=== PATIENT | female | born 1955 | race Caucasian/White ===

== ENCOUNTER → 2021-10-24 13:50 | Outpatient (CLI) | payer MEDICARE, SELFPAY ==
--- NOTE | 2021-10-24 14:15 | CT_ITS ---
STUDY: LOW DOSE CT LUNG CANCER SCREENING REASON FOR EXAM: Female, 66 years old. TOBACCO ABUSE. Patient smokes 1 pack per day for 48 years. RADIATION DOSAGE (If Supplied By Facility): CTDIvol = ( 2.01 ) mGy, DLP = ( 67.71 ) mGycm TECHNIQUE: No contrast was administered. Low dose technique was utilized (average mAS-38 and kVp 120). 1.25 mm axial source images with a slice interval of 1.25-mm were reconstructed in lung windows. 2.5 mm axial source images with a slice interval of 2.5-mm were reconstructed in lung windows. 5.0 mm axial source images with a slice interval of 5.0-mm were reconstructed in soft tissue windows. Nodule measured using lung windows on PACS and/or independent workstation with automated measurement of minimum and maximum diameter. Nodule measurement reported as average diameter rounded to the nearest whole number. Growth is defined as an increase ins size of greater than 1.5 mm. COMPARISON: None. NODULES: No suspicious nodules are seen. Emphysema: Hyperinflation. Emphysematous changes. Scarring at both lung apices. There is a 1.2 cm bulla in the posterior medial segment of the left lower lobe. Endobronchial lesion: None Aorta: Atherosclerotic plaque formation of the aortic arch. Coronary arteries: Coronary artery calcification. Heart: Unremarkable Pulmonary artery: Unremarkable Mediastinal nodes: Small mediastinal lymph nodes. Calcified bilateral hilar lymph nodes. Other chest and abdominal findings: CT/Low Dose CT Lung Screening IMPRESSION: Lung-RADS category 2 - Continue annual screening with LDCT in 12 months. IMPORTANT NOTES FOR USE: ACR Lung-RADS Version 1.1 Assessment Categories Release Date: 2018 Category: Coded 0-4 bases on nodule(s) with highest degree of suspicion. Negative screen is defined as categories 1 and 2; a positive screen is defined as categories 3 and 4. Category 3 and 4A nodules that are unchanged on interval CT should be coded as category 2, and individuals returned to screening in 12 months. Category 4X: Category 3 or 4 nodules with additional imaging findings that increase the suspicion of lung cancer, such as spiculation, GGN that doubles in size in 1 year, enlarged lymph notes, etc. Category Modifiers: S (significant finding unrelated to lung cancer) Electronically Signed: Yair Forman MD at 14:36 EST , Service support ,
== END ==
PROVIDERS: PCP Internal Medicine; Referring Provider Internal Medicine; Visit Provider Internal Medicine
DX: Z12.2 Encounter for screening for malignant neoplasm of respiratory organs (principal); Z87.891 Personal history of nicotine dependence
CPT/HCPCS: 71271

== ENCOUNTER 2021-11-21 10:26 | Outpatient (CLI) | payer MEDICARE, SELFPAY ==
--- NOTE | 2021-11-21 10:32 | BI_ITS ---
MAMMOGRAPHY - BILATERAL SCREENING REASON FOR EXAM: Female, 66 years old. Routine annual screening examination. PERTINENT HISTORY: Non-contributory. TECHNIQUE: Digital bilateral breast tigist (3D mammographic acquisition) in the CC and MLO projections. 2-D mediolateral oblique (MLO) and craniocaudad (CC) views of both breasts were obtained. CAD: Full Field Digital Mammography with Computer Added Detection was performed. COMPARISON: Comparison is made with prior outside examination dated 10/03/2014. FINDINGS: Breast Composition: The breasts are heterogeneously dense, which may obscure small masses. There are no dominant masses or suspicious calcifications. No other significant abnormalities are identified. There has been no significant change since the prior study. BI/SCRN MAMM (CAD)W/TIGIST BILAT IMPRESSION: Stable bilateral screening mammogram. Yearly follow-up mammogram recommended. (A) ASSESSMENT CATEGORY: BIRADS Category 1: Negative. A letter regarding these results will be sent to the patient by the facility within 30 days. Approximately 10% of breast cancers are not detected by mammography. A normal mammogram should not delay biopsy of a clinically suspicious abnormality. [id number] Electronically Signed: Yair Forman MD at 12:25 EST , Service support ,
--- NOTE | 2021-11-21 10:34 | BD_ITS ---
STUDY: DUAL ENERGY X-RAY ABSORPTIOMETRY / DXA REASON FOR EXAM: Female, 66 years old. [id number]. Patient is postmenopausal. TECHNIQUE: Bone Mineral Density (BMD) measurements of lumbar spine and bilateral hips were obtained. COMPARISON: None. FINDINGS: Lumbar Spine (L1-L4): g/cm2 (0.754) / T-score (-2.7) / Z-score (-0.7) Findings are suggestive of osteoporosis with a high fracture risk. Left Femur Total: g/cm2 (0.670) / T-score (-2.2) / Z-score (-0.8) Left Femoral Neck: g/cm2 (0.551) / T-score (-2.7) / Z-score (-1.0) Right Femur Total: g/cm2 (0.717) / T-score (-1.8) / Z-score (-0.4) Right Femoral Neck: g/cm2 (0.598) / T-score (-2.3) / Z-score (-0.6) BD/Dexa Bone Density Study IMPRESSION: The patient is considered osteoporotic as outlined below according to World Te Organization (WHO) criteria with a high fracture risk. Reference Information: The T-score is the number of standard deviations above or below the standard which is normal for young adults at their peak bone mineral density. The World Health Organization (WHO) interprets the T-scores as follows: Above -1 Normal bone density Between -1 and -2.5 Osteopenia Equal to / or below -2.5 Osteoporosis As a practical clinical guideline, osteopenia may be graded as follows: Mild -1 through -1.5 Moderate -1.6 through -2.0 Severe -2.1 through -2.4 The Z-score is the number of standard deviations above or below age-matched controls. A Z-score of less than -1.5 would be considered abnormal. References: 1. NIH Osteoporosis and Related Bone Diseases www osteo.org 2. International Society for Clinical Densitometry www iscd.org 3. National Osteoporosis Foundation www nof.org Electronically Signed: Yair Forman MD at 14:59 EST , Service support ,
== END 2021-11-21 23:59 | disposition short-term general hospital (02) ==
LOC: OPBD 10:27
PROVIDERS: PCP Internal Medicine; Referring Provider Internal Medicine; Visit Provider Internal Medicine
DX: Z78.0 Asymptomatic menopausal state (principal); Z12.31 Encounter for screening mammogram for malignant neoplasm of breast
CPT/HCPCS: 77063; 77067; 77080

== ENCOUNTER → 2023-02-11 | Outpatient (REF) | payer SELFPAY | LOC: CVS 08:56 | PROVIDERS: PCP Internal Medicine | DX: Z00.00 Encounter for general adult medical examination without abnormal findings (principal) ==

== ENCOUNTER → 2023-02-20 | Outpatient (CLI) | payer MEDICARE, SELFPAY ==
--- NOTE | 2023-02-20 13:07 | CT_ITS ---
STUDY: LOW DOSE CT LUNG CANCER SCREENING REASON FOR EXAM: Female, 67 years old. One pack per day smoker x50 years RADIATION DOSAGE (If Supplied By Facility): CTDIvol = ( 1.59 ) mGy, DLP = ( 54.20 ) mGycm TECHNIQUE: No contrast was administered. Low dose technique was utilized (average mAS-38 and kVp 120). 1.25 mm axial source images with a slice interval of 1.25-mm were reconstructed in lung windows. 2.5 mm axial source images with a slice interval of 2.5-mm were reconstructed in lung windows. 5.0 mm axial source images with a slice interval of 5.0-mm were reconstructed in soft tissue windows. COMPARISON: 10/24/2021 Findings: Lung windows show the lungs to be hyperexpanded with chronic interstitial changes again noted. No organized infiltrate, effusion, or suspicious noncalcified mass or nodule. Limited soft tissue windows show normal-appearing thyroid gland. No suspicious axillary adenopathy. No thoracic aortic aneurysm or dissection. There are calcified coronary vessels, no pericardial effusions. Limited cuts through the upper abdomen do not show suspicious abnormality. Bony structures show degenerative change CT/Low Dose CT Lung Screening IMPRESSION: Lung-RADS category 2 - Continue annual screening with LDCT in 12 months. IMPORTANT NOTES FOR USE: ACR Lung-RADS Version 1.1 Assessment Categories Release Date: 2018 Category: Coded 0-4 bases on nodule(s) with highest degree of suspicion. Negative screen is defined as categories 1 and 2; a positive screen is defined as categories 3 and 4. Category 3 and 4A nodules that are unchanged on interval CT should be coded as category 2, and individuals returned to screening in 12 months. Category 4X: Category 3 or 4 nodules with additional imaging findings that increase the suspicion of lung cancer, such as spiculation, GGN that doubles in size in 1 year, enlarged lymph notes, etc. Category Modifiers: S (significant finding unrelated to lung cancer) Electronically Signed: Aman Wesley MD at 14:01 EDT ,
== END | disposition home or self-care (01) ==
LOC: CT 13:06
PROVIDERS: PCP Internal Medicine; Referring Provider Internal Medicine; Visit Provider Internal Medicine
DX: Z12.2 Encounter for screening for malignant neoplasm of respiratory organs (principal); F17.210 Nicotine dependence, cigarettes, uncomplicated
CPT/HCPCS: 71271

== ENCOUNTER → 2025-08-25 | Outpatient (CLI) | payer MEDICARE, SELFPAY ==
--- OUTSIDE RECORDS SUMMARY | 2025-08-25 12:53 | XMS RPT_ITS | CCD ---
Author Organization [facility] ion Partnership [facility] Care Team Providers Care Validation Software Facilitator Name Role Phone Parth CANALES, Aman Bill Unavailable [phone] KYLIE TANNER Unavailable Unavailable KYLIE TANNER Unavailable Unavailable Emmy Haddad DO Unavailable [phone] Iris UGALDEN, Marianna Unavailable Unavailable Yesenia Dotson MA Unavailable Unavailable Janine Esteban MA Unavailable Unavailable Emmy Haddad DO Attending Unavailable Emmy Haddad DO Consulting Unavailable Gareth GARCIA, Gisela Unavailable Unavailable Dr. Emmy Haddad Primary Care Provider Dr. Julian Arellano Attending Provider Aman Alba MD Unavailable [phone] NONE, NONE Unavailable Unavailable Emmy Haddad DO Unavailable Emmy Haddad Referring Unavailable Emmy Haddad Attending Unavailable Emmy Haddad Primary Care Unavailable Allergies Allergy Classification Reported Allergen(s) Allergy Type Date of Onset Reaction(s) Facility (2 sources) iodine Drug Allergy 8 [facility] Work Phone: (2 sources) povidone-iodine Drug Allergy 8 [facility] Work Phone: (6 sources) Alendronate; Translations: [Fosamax *ENDOCRINE AND METABOLIC AGENTS - MISC.*] Drug Allergy [facility] Work Phone: (6 sources) Iodine; Translations: [Iodine *ANTISEPTICS & DISINFECTANTS*] Drug Allergy [facility] Work Phone: (6 sources) terbinafine; Translations: [Terbinafine *DERMATOLOGICALS *] Drug Allergy Hives [facility]; [facility] Work Phone: Medications Completed/Discontinued Medications Medication Drug Class(es) Dates Sig (Normalized) Sig (Original) acetaminophen 500 mg oral capsule (6 sources) Acetaminophen 50 0 MG Oral Capsule as needed (500 MG) Active Comments: Medication taken as needed. Comment on above: Medication taken as needed. ibuprofen 800 mg oral tablet (6 sources) Nonsteroidal Anti-inflammatory Drug IBU 800 MG Oral Tablet as needed (800 MG) Active Comments: Medication taken as needed. Comment on above: Medication taken as needed. MULTIPLE VITAMINS-MINERALS (1 source) Start: 09-04-2018 HAIR SKIN NAILS CAPS once a day MULTIPLE VITAMINS-MINERALS [id number] Justine CASTILLO Multivital Oral Tablet (6 sources) take 1 tablet by mouth once daily Multivital Oral Tablet daily Active Problems Active Problems Problem Classification Problem Date Documented Date Episodic/Chronic Diabetes mellitus without complication (8 sources) Hyperglycemia; Translations: [Hyperglycemia] 01-24-2023 Episodic Comment on above: new dx 01/30 Disorders of lipid metabolism (13 sources) Hyperlipidemia; Translations: [Hyperlipidemia, unspecified hyperlipidemia type] 01-23-2023 Chronic Immunizations and screening for infectious disease (20 sources) Patient encounter status; Translations: [Encounter for hepatitis C virus screening test for high risk patient] 10-17-2021 Episodic Osteoarthritis (18 sources) Osteoarthritis of joint of bilateral hands; Translations: [Osteoarthritis of both hands, unspecified osteoarthritis type] Onset: 08-17-2025 10-17-2021 Chronic Comment on above: stable Osteoporosis (12 sources) Disuse osteoporosis; 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, 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-23-2023 Chronic Comment on above: h/o hyperparathyiod and s/p resectioncant do fosamax and boniva and wont do prolia bc of family h/.o exercise Other circulatory disease (1 source) Other specified symptoms and signs involving the circulatory and respiratory systems; Translations: [Other specified symptoms and signs involving the circulatory and respiratory systems] Onset: 08-16-2025 Episodic Other screening for suspected conditions (not mental disorders or infectious disease) (20 sources) Encounter for screening for diabetes mellitus; Translations: [Patient encounter status] Onset: 10-28-2018 10-17-2021 Episodic Comment on above: last scope 1983-- wa john cologard now last scope 1983-- co logard 2021 pt declined mamm 202 3 Residual codes; unclassified (19 sources) Body mass index 20-24 - normal; Translations: [BMI 20.0-20.9, adult] 10-17-2021 Episodic Residual codes; unclassified (18 sources) Postmenopausal state; Translations: [Postmenopausal (Renamed from Postmenopausal status)] 10-18-2021 Episodic Residual codes; unclassified (19 sources) Tobacco user; Translations: [Tobacco abuse] 10-17-2021 Episodic Comment on above: one + pack a day for over 48yrs one + pack a day for over 49yrs Residual codes; unclassified (1 source) Asymptomatic menopausal state; Translations: [Asymptomatic menopausal state] Onset: 08-16-2025 Episodic Spondylosis; intervertebral disc disorders; other back problems (12 sources) Low back pain; Translations: [Low back pain] 10-17-2021 Episodic Substance-related disorders (1 source) Nicotine dependence, cigarettes, uncomplicated; Translations: [Nicotine dependence, cigarettes, uncomplicated] Onset: 08-16-2025 Chronic Past or Other Problems Problem Classification Problem Date Documented Date Episodic/Chronic Open wounds of extremities (2 sources) Laceration of elbow; Translations: [Laceration without foreign body of right elbow, initial encounter] Onset: 09-07-2018 09-07-2018 Episodic Other connective tissue disease (4 sources) Olecranon bursitis; Translations: [Olecranon bursitis, right elbow] Onset: 09-04-2018 09-07-2018 Episodic Unclassified (1 source) Problem Unclassified (6 sources) Abortions/Miscarriage s; Translations: [Abortions/Miscarriag es] 10-17-2021 Comment on above: 3. Unclassified (6 sources) Deliveries (Parity); Translations: [Deliveries (Parity)] 10-17-2021 Comment on above: 7. Unclassified (6 sources) Pregnancies (); Translations: [Pregnancies ()] 10-17-2021 Comment on above: 10. Unclassified (4 sources) Encounter for screening for lipid disorder Unclassified (4 sources) Postmenopausal (Renamed from Postmenopausal status) Unclassified (20 sources) Unclassified (2 sources) BMI 20.0-20.9, adult Unclassified (2 sources) Colon cancer screening (Renamed from Encounter for screening for malignant neoplasm of colon) Unclassified (2 sources) Encounter for screening mammogram for breast cancer (Renamed from Encounter for screening mammogram for malignant neoplasm of breast) Unclassified (2 sources) Tobacco abuse Unclassified (2 sources) Encounter for hepatitis C virus screening test for high risk patient Unclassified (2 sources) Encounter for annual general medical examination with abnormal findings in adult Unclassified (2 sources) Osteoarthritis of both hands, unspecified osteoarthritis type Results Test Name Value Interpretation Reference Range Facility Relevant diagnostic tests/la boratory data Narrativeon 08-17-2025 Fall risk assessment no [facility] Work Phone: MEDS REVIEW Done [facility] Work Phone: MEDS REVIEWD Medications reviewed without changes [facility] Work Phone: CBC W/AUTO DIFF WBC ([id number])O rdered By: Liquor Blender on 01-23-2023 Basophils (Bld) [#/Vol] 0.1 10*3/uL Normal 0.0-0.2 [facility]; [facility] Work Phone: Comment on above: PATIENT WAS FASTINGP ERFORMED BY: Aarki70 AdynxxUNC Health Lenoir [id number] Basophils/100 WBC (Bld) 1 % Normal [facility]; [facility] Work Phone: Comment on above: PATIENT WAS FASTINGP ERFORMED BY: Signaturit70 [facility] ShowKindred Hospital [facility] [id number] Eosinophils (Bld) [#/Vol] 0.2 10*3/uL Normal 0.0-0.4 [facility]; [facility] Work Phone: Comment on above: PATIENT WAS FASTINGP ERFORMED BY: Signaturit70 [facility] LabsUNC Health Lenoir [id number] Eosinophils/100 WBC (Bld) 3 % Normal [facility]; [facility] Work Phone: Comment on above: PATIENT WAS FASTINGP ERFORMED BY: TRINIDAD Harding[address] [facility]in [place] [id number] Erythrocyte distribution width (RBC) [Ratio] 12.0 % Normal 11.7-15.4 [facility]; [facility] Work Phone: Comment on above: PATIENT WAS FASTINGP ERFORMED BY: TRINIDAD Trianacohaim HardingBrgdty7555 Shepherd RoadFormerly [facility], [facility] [id number] Hematocrit (Bld) [Volume fraction] 42.1 % Normal 34.0-46.6 [facility]; [facility] Work Phone: Comment on above: PATIENT WAS FASTINGP ERFORMED BY: TRINIDAD Harding6370 Shepherd RoadHugh Chatham Memorial Hospitalin [place] [id number] Hemoglobin (Bld) [Mass/Vol] 14.3 g/dL Normal 11.1-15.9 [facility]; [facility] Work Phone: Comment on above: PATIENT WAS FASTINGP ERFORMED BY: TRINIDAD Jonas Zyrdtt8894 Shepherd RoadHugh Chatham Memorial Hospitalin [place] [id number] Immature granulocytes (Bld) [#/Vol] 0.0 10*3/uL Normal 0.0-0.1 [facility]; [facility] Work Phone: Comment on above: PATIENT WAS FASTINGP ERFORMED BY: TRINIDAD Jonas Mhjwde90[address] [facility]in [place] [id number] Immature granulocytes/100 WBC (Bld) 0 % Normal [facility]; [facility] Work Phone: Comment on above: PATIENT WAS FASTINGP ERFORMED BY: TRINIDAD Labco Aucjia7880 Shepherd Roadblin [place] [id number] Lymphocytes (Bld) [#/Vol] 1.3 10*3/uL Normal 0.7-3.1 [facility]; [facility] Work Phone: Comment on above: PATIENT WAS FASTINGP ERFORMED BY: [facility] Tgjlzd8964 Shepherd RoadHugh Chatham Memorial Hospitalin [place] [id number] Lymphocytes/100 WBC (Bld) 18 % Normal [facility]; [facility] Work Phone: Comment on above: PATIENT WAS FASTINGP ERFORMED BY: TRINIDAD Kamilahsabina Tlmecw[address] [facility] [address] [id number] MCH (RBC) [Entitic mass] 32.6 pg Normal 26.6-33.0 [facility]; [facility] Work Phone: Comment on above: PATIENT WAS FASTINGP ERFORMED BY: TRINIDAD LabVA [facility] Center[address] [facility] [id number] MCHC (RBC) [Mass/Vol] 34.0 g/dL Normal 31.5-35.7 [facility]; [facility] Work Phone: Comment on above: PATIENT WAS FASTINGP ERFORMED BY: TRINIDAD Tovarlin[address] [facility] [address] [id number] MCV (RBC) [Entitic vol] 96 fL Normal 79-97 [facility]; [facility] Work Phone: Comment on above: PATIENT WAS FASTINGP ERFORMED BY: TRINIDAD [facility]do[facility] Zynsoo[address] [facility] [address] [id number] Monocytes (Bld) [#/Vol] 0.6 10*3/uL Normal 0.1-0.9 [facility]; [facility] Work Phone: Comment on above: PATIENT WAS FASTINGP ERFORMED BY: TRINIDAD KamilahVA Medical Center[address] [facility] [place] [id number] Monocytes/100 WBC (Bld) 9 % Normal [facility]; [facility] Work Phone: Comment on above: PATIENT WAS FASTINGP ERFORMED BY: TRINIDAD Labdo[facility] Prbqzc[address] [facility] [id number] Neutrophils (Bld) [#/Vol] 4.9 10*3/uL Normal 1.4-7.0 [facility]; [facility] Work Phone: Comment on above: PATIENT WAS FASTINGP ERFORMED BY: TRINIDAD LabVA Medical Center[address] [facility] [id number] Neutrophils/100 WBC (Bld) 69 % Normal [facility]; [facility] Work Phone: Comment on above: PATIENT WAS FASTINGP ERFORMED BY: TRINIDAD Jonas Wkkefe[address] [facility] [address] [id number] Platelets (Bld) [#/Vol] 287 10*3/uL Normal 150-450 [facility]; [facility] Work Phone: Comment on above: PATIENT WAS FASTINGP ERFORMED BY: [facility] [facility] [id number] RBC (Bld) [#/Vol] 4.38 10*6/uL Normal 3.77-5.28 [facility]; [facility] Work Phone: Comment on above: PATIENT WAS FASTINGP ERFORMED BY: [facility] [facility] [id number] WBC (Bld) [#/Vol] 7.1 10*3/uL Normal 3.4-10.8 [facility]; [facility] Work Phone: Comment on above: PATIENT WAS FASTINGP ERFORMED BY: Kamilahdoctors [facility] Gekfhl[address] [facility] [address] [facility] [id number] HEPATITIS C ANTIBODY ([id number]) Ordered By: Liquor Blender on 01-23-2023 HCV Ab Signal/Cutoff IA [Rel units/Vol] Non-Reactive Normal [facility]; [facility] Work Phone: Comment on above: HCV antibody alone d oes not differentiate between previouslyresolved infection and active infection. Equivocal and ReactiveHCV antibody results should be followed up with an HCV RNA testto support the diagnosis of active HCV infection. PATIENT WAS FASTINGP ERFORMED BY: [facility] [facility] [id number] LIPID PANEL ([id number])Ordered B y: Liquor Blender on 01-23-2023 Cholesterol [Mass/Vol] 279 mg/dL Abnormal 100-199 [facility]; [facility] Work Phone: Comment on above: PATIENT WAS FASTINGP ERFORMED BY: TRINIDAD [facility] Xpgntr4527 Shepherd RoadDublin [place] [id number] Cholesterol in HDL [Mass/Vol] 93 mg/dL Normal [facility]; [facility] Work Phone: Comment on above: PATIENT WAS FASTINGP ERFORMED BY: TRINIDAD Labcohaim Hycqhu3043 [address] RoadDublin [place] [id number] Triglyceride [Mass/Vol] 83 mg/dL Normal 0-149 [facility]; [facility] Work Phone: Comment on above: PATIENT WAS FASTINGP ERFORMED BY: TRINIDAD [facility] Ormoir78[address] RoadDublin [place] [id number] LIPID PANEL ([id number]) 13 mg/dL Normal 5-40 [facility]; [facility] Work Phone: Comment on above: PATIENT WAS FASTINGP ERFORMED BY: TRINIDAD Labcohaim TovarNfsftp8960 Shepherd RoadDublin [place] [id number] LIPID PANEL (75489) 173 mg/dL Abnormal 0-99 [facility]; [facility] Work Phone: Comment on above: PATIENT WAS FASTINGP ERFORMED BY: TRINIDAD [facility] Wqyukw0949 [address] RoadDublin [place] [id number] LIPID PANEL (54804) 1.9 {ratio} Normal 0.0-3.2 [facility]; [facility] Work Phone: Comment on above: LDL/HDL Ratio Men Wo men 1/2 Avg.Risk 1.0 1.5 Avg.Risk 3.6 3.2 2X Avg.Risk 6.2 5.0 3X Avg.Risk 8.0 6.1 PATIENT WAS FASTINGP ERFORMED BY: TRINIDAD [facility] Auztir3382 [address] RoadDublin [place] [id number] METABOLIC PANEL, COMPREHENSI VE (87401)Ordered By: Liquor Blender on 01-23-2023 Albumin [Mass/Vol] 4.6 g/dL Normal 3.8-4.8 [facility]; [facility] Work Phone: Comment on above: PATIENT WAS FASTINGP ERFORMED BY: TRINIDAD [facility] Qrsuud1043 [address] RoadDublin [place] [id number] Albumin/Globulin [Mass ratio] 1.8 {ratio} Normal 1.2-2.2 [facility]; [facility] Work Phone: Comment on above: PATIENT WAS FASTINGP ERFORMED BY: TRINIDAD [facility] Jxighp2385 [address] RoadDublin [place] [id number] ALP [Catalytic activity/Vol] 61 U/L Normal 44-121 [facility]; [facility] Work Phone: Comment on above: PATIENT WAS FASTINGP ERFORMED BY: CB [facility] Omtaif9946 [address] RoadDublin [place] [id number] ALT [Catalytic activity/Vol] 24 U/L Normal 0-32 [facility]; [facility] Work Phone: Comment on above: PATIENT WAS FASTINGP ERFORMED BY: TRINIDAD [facility] Tsienw5234 [address] RoadDublin [place] [id number] AST [Catalytic activity/Vol] 27 U/L Normal 0-40 [facility]; [facility] Work Phone: Comment on above: PATIENT WAS FASTINGP ERFORMED BY: TRINIDAD [facility] Yxkqdi92[address] RoadDublin [place] [id number] Bilirubin [Mass/Vol] 0.3 mg/dL Normal 0.0-1.2 [facility]; [facility] Work Phone: Comment on above: PATIENT WAS FASTINGP ERFORMED BY: TRINIDAD [facility] Ewhzvq5[address] RoadDublin [place] [id number] Calcium [Mass/Vol] 10.1 mg/dL Normal 8.7-10.3 [facility]; [facility] Work Phone: Comment on above: PATIENT WAS FASTINGP ERFORMED BY: CB [facility] Kansya0925 [address] RoadDublin [place] [id number] Chloride [Moles/Vol] 103 mmol/L Normal 96-106 [facility]; [facility] Work Phone: Comment on above: PATIENT WAS FASTINGP ERFORMED BY: [facility] Hjfqjh0069 [address] RoadDublin [place] [id number] CO2 [Moles/Vol] 26 mmol/L Normal 20-29 [facility]; [facility] Work Phone: Comment on above: PATIENT WAS FASTINGP ERFORMED BY: [facility] Ahbpvy[address] [facility] Hospitalblin [place] [id number] Creatinine [Mass/Vol] 0.76 mg/dL Normal 0.57-1.00 [facility]; [facility] Work Phone: Comment on above: PATIENT WAS FASTINGP ERFORMED BY: [facility] Atujvg9[address] [facility] [id number] GFR/1.73 sq M.predicted among non-blacks MDRD (S/P/Bld) [Vol rate/Area] 85 mL/min/{1.73_m2} Normal Com[facility] e [facility]; [facility] Work Phone: Comment on above: PATIENT WAS FASTINGP ERFORMED BY: [facility] Rohawb4[address] [facility]in [place] [id number] Globulin (S) [Mass/Vol] 2.6 g/dL Normal 1.5-4.5 [facility]; [facility] Work Phone: Comment on above: PATIENT WAS FASTINGP ERFORMED BY: [facility] Fzejem[address] [facility] Hospitalblin [place] [id number] Glucose [Mass/Vol] 119 mg/dL Abnormal 70-99 [facility]; [facility] Work Phone: Comment on above: PATIENT WAS FASTINGP ERFORMED BY: [facility] Ylrhat[address] [facility]in [place] [id number] Potassium [Moles/Vol] 4.9 mmol/L Normal 3.5-5.2 [facility]; [facility] Work Phone: Comment on above: PATIENT WAS FASTINGP ERFORMED BY: [facility] Zoivtc[address] [facility] HospitalD[facility] [place] [id number] Protein [Mass/Vol] 7.2 g/dL Normal 6.0-8.5 [facility]; [facility] Work Phone: Comment on above: PATIENT WAS FASTINGP ERFORMED BY: CB [facility] Baadfn9599 [address] RoadDublin [place] [id number] Sodium [Moles/Vol] 141 mmol/L Normal 134-144 [facility]; [facility] Work Phone: Comment on above: PATIENT WAS FASTINGP ERFORMED BY: CB [facility] Sblhvc3701 [address] RoadDublin [place] [id number] Urea nitrogen [Mass/Vol] 16 mg/dL Normal 8-27 [facility]; [facility] Work Phone: Comment on above: PATIENT WAS FASTINGP ERFORMED BY: CB [facility] Nhesqf3835 [address] RoadDublin [place] [id number] Urea nitrogen/Creatinin e [Mass ratio] 21 mg/mg Normal 12-28 [facility]; [facility] Work Phone: Comment on above: PATIENT WAS FASTINGP ERFORMED BY: [facility] Grysat6264 [address] Roadblin [place] [id number] TSH ([id number])Ordered By: [employer] m Warehouse Delivery Manager on 01-23-2023 TSH Qn 0.797 {uIU/mL} Normal 0.450-4.500 [facility]; [facility] Work Phone: Comment on above: PATIENT WAS FASTINGP ERFORMED BY: [facility] Nalqqm3174 [address] RoadHugh Chatham [facility] Hospitalin [place] [id number] Cologuard - Strool Based DNA Test, CRC SCREEN ([id number])Ordered By: Marianna Simmons on 10-17-2021 Noninvasive colorectal cancer DNA and occult blood screening Ql (Stl) Negative Normal [facility]; [facility] Work Phone: HEPATITIS C ANTIBODY ([id number]) Ordered By: Liquor Blender on 10-17-2021 HCV Ab Signal/Cutoff IA [Rel units/Vol] 0.1 {s/co_ratio} Normal 0.0-0.9 [facility]; [facility] Work Phone: Comment on above: Negative: < 0.8 Inde terminate: 0.8 - 0.9 Positive: > 0.9 . The CDC recommends that a positive HCV antibody result be followed up with a HCV Nucleic Acid Amplification test (173201). PATIENT WAS FASTINGP ERFORMED BY: TRINIDAD Labcohaim Mnezhj8[address] [facility]in [place] [id number] LIPID PANEL ([id number])Ordered B y: Liquor Blender on 10-17-2021 Cholesterol [Mass/Vol] 279 mg/dL Abnormal 100-199 [facility]; [facility] Work Phone: Comment on above: PATIENT WAS FASTINGP ERFORMED BY: CB [facility] Rhreok[address] [facility]in [place] [id number] Cholesterol in HDL [Mass/Vol] 82 mg/dL Normal [facility]; [facility] Work Phone: Comment on above: PATIENT WAS FASTINGP ERFORMED BY: [facility] Fdicjo6140 [facility] [place] [id number] Triglyceride [Mass/Vol] 83 mg/dL Normal 0-149 [facility]; [facility] Work Phone: Comment on above: PATIENT WAS FASTINGP ERFORMED BY: [facility] Axxxgj9090 [address] [facility]in [place] [id number] LIPID PANEL ([id number]) 13 mg/dL Normal 5-40 [facility]; [facility] Work Phone: Comment on above: PATIENT WAS FASTINGP ERFORMED BY: [facility] Zjbtbq[address] [facility] [id number] LIPID PANEL (11737) 184 mg/dL Abnormal 0-99 [facility]; [facility] Work Phone: Comment on above: PATIENT WAS FASTINGP ERFORMED BY: [facility] Vagjrb8546 [facility] [place] [id number] LIPID PANEL (55716) 2.2 {ratio} Normal 0.0-3.2 [facility]; [facility] Work Phone: Comment on above: LDL/HDL Ratio Men Wo men 1/2 Avg.Risk 1.0 1.5 Avg.Risk 3.6 3.2 2X Avg.Risk 6.2 5.0 3X Avg.Risk 8.0 6.1 PATIENT WAS FASTINGP ERFORMED BY: TRINIDAD [facility] Espozq[address] [facility] [id number] .GFRon 10-28-2018 GFR 95 ml/min/1.73sqm Normal [facility] ([place]) Comment on above: Result Comment: GFR Population mean for , Non- Americans Ages 20-29 = 116 mL/min/1.73 sq.m. Ages 30-39 = 107 mL/min/1.73 sq.m. Ages 40-49 = 99 mL/min/1.73 sq.m. Ages 50-59 = 93 mL/min/1.73 sq.m. Ages 60-69 = 85 mL/min/1.73 sq.m. Ages 70+ = 75 mL/min/1.73 sq.m.Chronic Kidney Disease: Less than 60 mL/min/1.73 square metersEnd Stage Renal Disease: Less than 15 mL/min/1.73 square meters Performed By: #### B MP, GFR ####[place] [address] GFR Non- 79 ml/min/1.73sqm Normal [facility] ([place]) Comment on above: Result Comment: GFR Population mean for , Non- Americans Ages 20-29 = 116 mL/min/1.73 sq.m. Ages 30-39 = 107 mL/min/1.73 sq.m. Ages 40-49 = 99 mL/min/1.73 sq.m. Ages 50-59 = 93 mL/min/1.73 sq.m. Ages 60-69 = 85 mL/min/1.73 sq.m. Ages 70+ = 75 mL/min/1.73 sq.m.Chronic Kidney Disease: Less than 60 mL/min/1.73 square metersEnd Stage Renal Disease: Less than 15 mL/min/1.73 square meters Performed By: #### B MP, GFR ####[address] [address] BMPon 10-28-2018 Calcium mass conc 9.5 mg/dL Normal 8.4-10.2 [facility] ([place]) Comment on above: Performed By: #### B MP, GFR ####[address] [address] Chloride molar conc 103 mmol/L Normal 98-107 [facility] ([place]) Comment on above: Performed By: #### B MP, GFR ####[address] [address] CO2 molar conc 28 mmol/L Normal 23-31 [facility] ([place]) Comment on above: Performed By: #### B MP, GFR ####[address] [address] Creatinine mass conc 0.74 mg/dL Normal 0.55-1.02 [facility] ([place]) Comment on above: Performed By: #### B MP, GFR ####[address] [address] Electrolyte Balance 10.0 mEq/L Normal [facility] ([place]) Comment on above: Performed By: #### B MP, GFR ####[address] [address] Glucose mass conc 98 mg/dL Normal 80-115 [facility] ([place]) Comment on above: Performed By: #### B MP, GFR ####[address] [address] Potassium molar conc 4.4 mmol/L Normal 3.5-5.1 [facility] ([place]) Comment on above: Performed By: #### B MP, GFR ####[address] [address] Sodium molar conc 141 mmol/L Normal 136-145 [facility] ([place]) Comment on above: Performed By: #### B MP, GFR ####[address] [address] Urea nitrogen mass conc 17 mg/dL Normal 7-18 [facility] ([place]) Comment on above: Performed By: #### B MP, GFR ####[address] [address] Urea nitrogen/Creatinin e mass ratio 23 ratio Normal 7-27 [facility] ([place]) Comment on above: Performed By: #### B MP, GFR ####[place] [address] Clinical Summary: Teddy Gagnonn 09-18-2018 WOP Invalid Interpretation Code [facility] Work Phone: Office Visit: Follow-up by jerome figueroa, Rm: 1on 09-18-2018 NEGATED: Highlighted rowProtein mass conc Done Invalid Interpretation Code [facility] Work Phone: NEGATED: Highlighted rowProtein mass conc Yes Invalid Interpretation Code [facility] Work Phone: Vital Signs Date Time Vital Sign Value Performing Clinician Facility 08-17-2025 10:04-0400 Body height 160 cm Aman Alba MD Work Phone: [facility] 08-17-2025 10:04-0400 Body height 160.02 cm Aman Alba MD Work Phone: [facility] 08-17-2025 10:04-0400 Body mass index (BMI) [Ratio] 21.33 kg/m2 Aman Alba MD Work Phone: [facility] 08-17-2025 10:04-0400 Body weight 55 kg Aman Alba MD Work Phone: [facility] 08-17-2025 10:04-0400 Body weight 54.43 kg Aman Alba MD Work Phone: [facility] 08-17-2025 10:04-0400 BP SITE #1 Aman Alba MD Work Phone: [facility] 08-17-2025 10:04-0400 BP SITE #2 Aman Alba MD Work Phone: [facility] 08-17-2025 10:04-0400 Diastolic blood pressure 112 mm[Hg] Aman Alba MD Work Phone: [facility] 08-17-2025 10:04-0400 Diastolic blood pressure 96 mm[Hg] Aman Alba MD Work Phone: [facility] 08-17-2025 10:04-0400 Heart rate 62 /min Aman Alba MD Work Phone: [facility] 08-17-2025 10:04-0400 HGHTCHNVIS Aman Alba MD Work Phone: [facility] 08-17-2025 10:04-0400 Systolic blood pressure 159 mm[Hg] Aman Alba MD Work Phone: [facility] 08-17-2025 10:04-0400 Systolic blood pressure 152 mm[Hg] Aman Alba MD Work Phone: [facility] 08-17-2025 10:04-0400 VITALSDONE Aman Alba MD Work Phone: [facility] 01-30-2023 12:09-0400 Body height 162.56 cm Gisela Servin CMA [facility] Work Phone: Comment on above: no vitals, virtual a ppt 01-23-2023 07:45-0400 Body height 162.56 cm Emmy Haddad DO Work Phone: [facility]; [facility] Work Phone: Comment on above: I rechecked her bloo d pressure it was 120/80. 01-23-2023 07:45-0400 Body mass index (BMI) [Ratio] 20.6 kg/m2 Emmy Haddad DO Work Phone: [facility]; [facility] Work Phone: Comment on above: I rechecked her bloo d pressure it was 120/80. 01-23-2023 07:45-0400 Body surface area Derived from formula 1.57 m2 Emmy Haddad DO Work Phone: [facility]; [facility] Work Phone: Comment on above: I rechecked her bloo d pressure it was 120/80. 01-23-2023 07:45-0400 Body temperature 96.4 [degF] Emmy Haddad DO Work Phone: [facility]; [facility] Work Phone: Comment on above: I rechecked her bloo d pressure it was 120/80. 01-23-2023 07:45-0400 Body weight 54.43 kg Emmy Haddad DO Work Phone: [facility]; [facility] Work Phone: Comment on above: I rechecked her bloo d pressure it was 120/80. 01-23-2023 07:45-0400 Diastolic blood pressure 90 mm[Hg] Emmy Haddad DO Work Phone: [facility]; [facility] Work Phone: Comment on above: Patient Position: Si tting; Cuff Location: Left Arm; Cuff Size: Standard I rechecked her bloo d pressure it was 120/80. 01-23-2023 07:45-0400 Heart rate 64 /min Emmy Haddad DO Work Phone: [facility]; [facility] Work Phone: Comment on above: Pattern: Regular I rechecked her bloo d pressure it was 120/80. 01-23-2023 07:45-0400 Respiratory rate 15 /min Emmy Haddad DO Work Phone: [facility]; [facility] Work Phone: Comment on above: Pattern: Unlabored I rechecked her bloo d pressure it was 120/80. 01-23-2023 07:45-0400 SaO2% (BldA) [Mass fraction] 96 % Emmy Haddad DO Work Phone: [facility]; [facility] Work Phone: Comment on above: Room air I rechecked her bloo d pressure it was 120/80. 01-23-2023 07:45-0400 Systolic blood pressure 142 mm[Hg] Emmy Haddad DO Work Phone: [facility]; [facility] Work Phone: Comment on above: Patient Position: Si tting; Cuff Location: Left Arm; Cuff Size: Standard I rechecked her bloo d pressure it was 120/80. 12-25-2021 08:27-0500 Body height 162.56 cm Marianna Iris LPN [facility] Work Phone: Comment on above: virtual, reported by pt 12-25-2021 08:27-0500 Body mass index (BMI) [Ratio] 20.6 kg/m2 Marianna [facility] Work Phone: Comment on above: virtual, reported by pt 12-25-2021 08:27-0500 Body surface area Derived from formula 1.57 m2 Marianna Iris LPN [facility]; [facility] Work Phone: Comment on above: virtual, reported by pt 12-25-2021 08:27-0500 Body weight 54.43 kg Marianna Iris [facility] Work Phone: Comment on above: virtual, reported by pt 10-17-2021 11:20-0500 Body height 162.56 cm Marianna Iris LPN [facility] Work Phone: 10-17-2021 11:20-0500 Body mass index (BMI) [Ratio] 20.6 kg/m2 Marianna Iris METHODS ANALYST [facility] Work Phone: 10-17-2021 11:20-0500 Body surface area Derived from formula 1.57 m2 Marianna Iris [facility] Work Phone: 10-17-2021 11:20-0500 Body temperature 97.1 [degF] Marianna Simmons LPN [facility]; [facility] Work Phone: Comment on above: Method: Temporal 10-17-2021 11:20-0500 Body weight 54.43 kg Marianna Simmons LPN [facility] Work Phone: 10-17-2021 11:20-0500 Diastolic blood pressure 68 mm[Hg] aMrianna Simmons ELLIE [facility]; [facility] Work Phone: Comment on above: Patient Position: Si tting; Cuff Location: Left Arm; Cuff Size: Standard 10-17-2021 11:20-0500 Heart rate 87 /min Marianna Simmons ELLIE [facility] Work Phone: Comment on above: Pattern: Regular 10-17-2021 11:20-0500 Respiratory rate 16 /min Marianna Simmons ELLIE [facility] Work Phone: Comment on above: Pattern: Unlabored 10-17-2021 11:20-0500 SaO2% (BldA) [Mass fraction] 97 % Marianna Simmons ELLEI [facility] Work Phone: Comment on above: Room air 10-17-2021 11:20-0500 Systolic blood pressure 120 mm[Hg] Marianna Simmons ELLIE [facility] Work Phone: Comment on above: Patient Position: Si tting; Cuff Location: Left Arm; Cuff Size: Standard NEGATED: Highlighted [id number] 11:22-0500 BMI (Body Mass Index) 21.02 kg/m2 Lenoratripp Chacon ELLIE [facility] Work Phone: NEGATED: Highlighted [id number] 11:22-0500 BP Diastolic 83 mm[Hg] Lenora Chacon LPN [facility] Work Phone: NEGATED: Highlighted [id number] 11:22-0500 BP Systolic 128 mm[Hg] Lenora Ines ELLIE [facility] Work Phone: NEGATED: Highlighted [id number] 11:22-0500 Height 162.56 cm Lenora Chacon LPN [facility] Work Phone: NEGATED: Highlighted [id number] 11:22-0500 Height 163 cm Lenora Chacon LPN [facility] Work Phone: NEGATED: Highlighted [id number] 11:22-0500 Pulse (Heart Rate) 71 /min Lenora Chacon LPN [facility] Work Phone: NEGATED: Highlighted [id number] 11:22-0500 Weight 55.34 kg Lenoratripp Chacon LPN [facility] Work Phone: NEGATED: Highlighted [id number] 11:22-0500 Weight 55 kg Lenoratripp Chacon METHODS ANALYST [facility] Work Phone: Encounters Encounter Date Encounter Type Care Provider Facility Start: 08-25-2025 ambulatory Emmy Haddad Facilit y:[facility] Start: 08-17-2025 In-person encounter Aman Alba MD Work Phone: [facility] Work Phone: Start: 08-17-2025 Visit out of hours Aman Alba MD Work Phone: [facility]. Work Phone: Start: 02-11-2023 Non-patient / Non-visit Dr. Emmy Haddad Work Phone: [facility] Start: 02-11-2023 End: 02-11-[address] Emmy Haddad Work Phone: [facility] Work Phone: Start: 02-11-2023 End: 02-11-[address] Emmy Haddad Work Phone: [facility] Start: 01-30-2023 End: 01-30-2023 Office outpatient visit 15 minutes Emmy Boo DO Work Phone: [facility] Start: 01-24-2023 ambulatory Emmy Boo DO [facility] Start: 01-24-2023 End: 01-24-2023 Lab Order Emmy Boo DO Work Phone: [facility] Start: 01-23-2023 End: 01-23-2023 Patient encounter procedure Emmy Boo DO Work Phone: [facility] Start: 12-25-2021 End: 12-25-2021 Office outpatient visit 15 minutes Emmy Boo DO Work Phone: [facility] Start: 12-04-2021 End: 12-15-2021 Office outpatient visit 5 minutes Emmy Boo DO Work Phone: [facility] Start: 12-04-2021 Review Emmy Fearo n DO Work Phone: [facility] Start: 10-18-2021 End: 10-18-2021 Lab Order Emmy Boo DO Work Phone: [facility] Start: 10-17-2021 End: 10-17-2021 Initial preventive medicine new patient 63yrs&> Emmy Boo DO Work Phone: [facility] Start: 10-17-2021 End: 10-17-2021 Patient encounter procedure Emmy Boo DO Work Phone: [facility] Work Phone: Start: 10-28-2018 End: 11-02-2018 Patient encounter procedure KYLIE TANNER Facility:[facility] Start: 09-18-2018 End: 09-18-2018 Patient encounter procedure Aman Alba MD Work Phone: [facility] Work Phone: Patient encounter procedure Emmy Boo DO Work Phone: [facility] Work Phone: Patient encounter procedure Gisela Servin [facility] Work Phone: Procedures Date Procedure Procedure Detail Performing Clinician Start: 08-17-2025 Blood pressure outside of normal parameters - follow-up documented Aman Alba MD Work Phone: Start: 08-17-2025 BMI documented within normal parameters - no follow-up plan is required Aman Alba MD Work Phone: Start: 08-17-2025 Documentation of current medications Aman Alba MD Work Phone: Start: 08-17-2025 Pt scrnd tobacco use rcvd tobacco cessation talk Aman Alba MD Work Phone: Start: 08-17-2025 Pain assessment documented as positive - follow-up documented Aman Alba MD Work Phone: Start: 11-21-2021 End: 11-21-2021 Dexa Bone Density Study Comments: See Note; NOTES: [facility] Imaging Services [address] [place] [id number] Dexa Bone Density Study MR#: [id number] Acct: [id number] Name: INDIA STOUT Rep #: [id number] : 1955 F 66 From: Yair kat MD PCP: Dr. Emmy Haddad, Status: REG CLI Study: Dexa Bone Density Study Date of Exam: 11/21/21 Exam# [id number] Ordering Dr: Emmy Haddad DO STUDY: DUAL ENERGY X-RAY ABSORPTIOMETRY / DXA REASON FOR EXAM: Female, 66 years old. [id number]. Patient is postmenopausal. TECHNIQUE: Bone Mineral Density (BMD) measurements of lumbar spine and bilateral hips were obtained. COMPARISON: None. FINDINGS: Lumbar Spine (L1-L4): g/cm2 (0.754) / T-score (-2.7) / Z-score (-0.7) Findings are suggestive of osteoporosis with a high fracture risk. Left Femur Total: g/cm2 (0.670) / T-score (-2.2) / Z-score (-0.8) Left Femoral Neck: g/cm2 (0.551) / T-score (-2.7) / Z-score (-1.0) Right Femur Total: g/cm2 (0.717) / T-score (-1.8) / Z-score (-0.4) Right Femoral Neck: g/cm2 (0.598) / T-score (-2.3) / Z-score (-0.6) BD/Dexa Bone Density Study IMPRESSION: The patient is considered osteoporotic as outlined below according to World Te Organization (WHO) criteria with a high fracture risk. Reference Information: The T-score is the number of standard deviations above or below the standard which is normal for young adults at their peak bone mineral density. The World Health Organization (WHO) interprets the T-scores as follows: Above -1 Normal bone density Between -1 and -2.5 Osteopenia Equal to / or below -2.5 Osteoporosis As a practical clinical guideline, osteopenia may be graded as follows: Mild -1 through -1.5 Moderate -1.6 through -2.0 Severe -2.1 through -2.4 The Z-score is the number of standard deviations above or below age-matched controls. A Z-score of less than -1.5 would be considered abnormal. References: 1. NIH Osteoporosis and Related Bone Diseases www osteo.org 2. International Society for Clinical Densitometry www iscd.org 3. National Osteoporosis Foundation www nof.org Electronically Signed: Yair Forman MD at 14:59 EST , Service support , CC: Dr. Emmy Haddad DO Video Clerk: Signed Emmy Haddad DO Work Phone: Start: 11-21-2021 End: 11-21-2021 SCRN MAMM (CAD)W/TIGIST BILAT Comments: See Note; NOTES: [facility] Imaging Services [address] [place] [address] SCRN MAMM (CAD)W/TIGIST BILAT MR#: [id number] Acct: [id number] Name: INDIA STOUT Rep #: [id number] : 1955 F 66 From: Yair kat MD PCP: Dr. Emmy Haddad DO Status: REG CLI Study: SCRN MAMM (CAD)W/TIGIST BILAT Date of Exam: 11/10 01/01 Exam# [id number] Ordering Dr: Emmy Haddad DO MAMMOGRAPHY - BILATERAL SCREENING REASON FOR EXAM: Female, 66 years old. Routine annual screening examination. PERTINENT HISTORY: Non-contributory. TECHNIQUE: Digital bilateral breast tigist (3D mammographic acquisition) in the CC and MLO projections. 2-D mediolateral oblique (MLO) and craniocaudad (CC) views of both breasts were obtained. CAD: Full Field Digital Mammography with Computer Added Detection was performed. COMPARISON: Comparison is made with prior outside examination dated 10/03/2014. FINDINGS: Breast Composition: The breasts are heterogeneously dense, which may obscure small masses. There are no dominant masses or suspicious calcifications. No other significant abnormalities are identified. There has been no significant change since the prior study. BI/SCRN MAMM (CAD)W/TIGIST BILAT IMPRESSION: Stable bilateral screening mammogram. Yearly follow-up mammogram recommended. (A) ASSESSMENT CATEGORY: BIRADS Category 1: Negative. A letter regarding these results will be sent to the patient by the facility within 30 days. Approximately 10% of breast cancers are not detected by mammography. A normal mammogram should not delay biopsy of a clinically suspicious abnormality. [id number] Electronically Signed: Yair Forman MD at 12:25 EST , Service support , CC: Dr. Emmy Haddad DO Video Clerk: Signed Emmy Haddad DO Work Phone: Start: 10-24-2021 End: 10-24-[address] Lung Screening Comments: See Note; NOTES: [facility] Imaging Services [address] [place] [address] Lung Screening MR#: [id number] Acct: [id number] Name: INDIA STOUT Rep #: [id number] : 1955 F 66 From: Yair kat MD PCP: Dr. Emmy Haddad DO Status: REG CLI Study: Low Dose CT Lung Screening Date of Exam: 10/24 Exam# [id number] Ordering Dr: Emmy Haddad DO STUDY: LOW DOSE CT LUNG CANCER SCREENING REASON FOR EXAM: Female, 66 years old. TOBACCO ABUSE. Patient smokes 1 pack per day for 48 years. RADIATION DOSAGE (If Supplied By Facility): CTDIvol = ( 2.01 ) mGy, DLP = ( 67.71 ) mGycm TECHNIQUE: No contrast was administered. Low dose technique was utilized (average mAS-38 and kVp 120). 1.25 mm axial source images with a slice interval of 1.25-mm were reconstructed in lung windows. 2.5 mm axial source images with a slice interval of 2.5-mm were reconstructed in lung windows. 5.0 mm axial source images with a slice interval of 5.0-mm were reconstructed in soft tissue windows. Nodule measured using lung windows on PACS and/or independent workstation with automated measurement of minimum and maximum diameter. Nodule measurement reported as average diameter rounded to the nearest whole number. Growth is defined as an increase ins size of greater than 1.5 mm. COMPARISON: None. NODULES: No suspicious nodules are seen. Emphysema: Hyperinflation. Emphysematous changes. Scarring at both lung apices. There is a 1.2 cm bulla in the posterior medial segment of the left lower lobe. Endobronchial lesion: None Aorta: Atherosclerotic plaque formation of the aortic arch. Coronary arteries: Coronary artery calcification. Heart: Unremarkable Pulmonary artery: Unremarkable Mediastinal nodes: Small mediastinal lymph nodes. Calcified bilateral hilar lymph nodes. Other chest and abdominal findings: CT/Low Dose CT Lung Screening IMPRESSION: Lung-RADS category 2 - Continue annual screening with LDCT in 12 months. IMPORTANT NOTES FOR USE: ACR Lung-RADS Version 1.1 Assessment Categories Release Date: 2018 Category: Coded 0-4 bases on nodule(s) with highest degree of suspicion. Negative screen is defined as categories 1 and 2; a positive screen is defined as categories 3 and 4. Category 3 and 4A nodules that are unchanged on interval CT should be coded as category 2, and individuals returned to screening in 12 months. Category 4X: Category 3 or 4 nodules with additional imaging findings that increase the suspicion of lung cancer, such as spiculation, GGN that doubles in size in 1 year, enlarged lymph notes, etc. Category Modifiers: S (significant finding unrelated to lung cancer) Electronically Signed: Yair Forman MD at 14:36 EST , Service support , CC: Dr. Emmy Haddad DO Video Clerk: Signed Emmy Haddad DO Work Phone: Start: 09-18-2018 End: 09-18-2018 Blood pressure within normal parameters - no follow-up required Aman Alba MD Work Phone: Start: 09-18-2018 End: 09-18-2018 BMI documented within normal parameters - no follow-up plan is required Aman Alba MD Work Phone: Start: 09-18-2018 End: 09-18-2018 Documentation of current medications Aman Alba MD Work Phone: Start: 09-18-2018 End: 09-18-2018 Pain assessment documented as negative - follow-up not required Aman Alba MD Work Phone: Start: 09-18-2018 End: 09-18-2018 Pt tobacco screen rcvd tlk Aman Alba MD Work Phone: Plan of Treatment Date Care Activity Detail Author Start: 01-30-2023 Procedure Education Eprescribed prescriptions (G8553) [facility] Work Phone: Start: 01-30-2023 Provider Instructions for Treatment [facility] Work Phone: Start: 01-24-2023 Hemoglobin glycosylated a1c HGB A1C (26614) [facility]; [facility] Work Phone: Start: 01-23-2023 Procedure Education Eprescribed prescriptions (G8553) [facility]; [facility] Work Phone: Start: 01-23-2023 Provider Instructions for Treatment [facility]; [facility] Work Phone: Start: 01-23-2023 Hepatitis c antibody HEPATITIS C ANTIBODY (89438) [facility]; [facility] Work Phone: Start: 01-23-2023 Assay of thyroid stimulating hormone tsh TSH (46776) [facility]; [facility] Work Phone: Start: 01-23-2023 Comprehensive metabolic panel METABOLIC PANEL, COMPREHENSIVE (70072) [facility]; [facility] Work Phone: Start: 01-23-2023 Lipid panel LIPID PANEL (47058) [facility]; [facility] Work Phone: Start: 01-23-2023 Blood count complete auto&auto difrntl wbc CBC W/AUTO DIFF WBC (84747) [facility]; [facility] Work Phone: Start: 12-25-2021 Procedure Education Eprescribed prescriptions (G8553) [facility]; [facility] Work Phone: Start: 12-25-2021 Provider Instructions for Treatment [facility]; [facility] Work Phone: Start: 12-25-2021 Lipid panel LIPID PANEL (58406) [facility] Work Phone: Start: 12-25-2021 Hepatic function panel HEPATIC FUNCTION PANEL (03886) [facility]; [facility] Work Phone: Start: 10-18-2021 Calcium total CALCIUM SERUM (06243) [facility] Work Phone: Start: 10-18-2021 Lipid panel LIPID PANEL (97331) [facility] Work Phone: Start: 10-17-2021 Procedure Education Eprescribed prescriptions (G8553) [facility]; [facility] Work Phone: Start: 10-17-2021 Provider Instructions for Treatment [facility]; [facility] Work Phone: Start: 10-17-2021 Oncology colorectal screening kevin 10 dna markrs Cologuard - Strool Based DNA Test, CRC SCREEN (39043) [facility]; [facility] Work Phone: Start: 10-05-2018 End: 10-05-2018 Appointment Appointment [facility] Work Phone: Start: 09-18-2018 End: 09-18-2018 Appointment Appointment [facility] Work Phone: Patient Education \cps-[id number]\CPS_ PtEducati on\[id number].pdf [facility] Work Phone: [facility] Work Phone: [facility] Work Phone: [facility] Work Phone: [facility] Work Phone: Immunizations Immunization Date Immunization Notes Care Provider William tejeda 01-24-2022 COVID-Pfizer (3 MCG/0.2 ML) Emmy Haddad DO Work Phone: [facility]; [facility] Work Phone: No information available. Lenora Chacon LPN [facility] Work Phone: Payers Date Payer Category Payer Self-pay [id number] 2021 Private Health Insurance [id number] 2017 Unknown [id number] 1955 Unknown [id number] 1955 Unknown [id number] Unknown [employer] PPO Unknown [facility] PACKAGE PLAN [id number] Unknown [id number] Social History Date Type Detail Facility Start: 09-18-2018 End: 09-18-2018 Assertion Unknown if ever smoked [facility] Work Phone: Alcohol Use: Alcohol Use: [facility] Work Phone: Comment on above: 3 glasses daily Caffeine Use Caffeine Use [facility] Work Phone: Comment on above: 8 cups per day Living Situation: Living Situation: [facility] Work Phone: Comment on above: and 2 grown children Tobacco Use: Tobacco Use: [facility] Work Phone: Start: 1955 Sex Assigned At Female W [facility] Start: 08-17-2025 social history reviewed E&M Done [facility] Work Phone: Start: 08-17-2025 smoking/tobacco cessation, patient education and counseling Smoking cessation education (procedure) [facility] Work Phone: NEGATED: Highlighted rowStart: 09-18-2018 End: 09-18-2018 Tobacco use and exposure Unknown if ever smoked [facility] Work Phone: Evaluation note Note Date & Type Note Facility Evaluation note No assessment information availa [facility] Work Phone: Instructions Note Date & Type Note Facility Instructions Name Patient Instructions Indication:Need for prophylactic vaccination and inoculation against influenza (Renamed from Need for immunization against influenza) Start:17-Oct-2021 Instruction Type:Provider Instructions for Treatment How to Access Health Information Online using Patient Portal and [employer] Apps Indication:Need for prophylactic vaccination and inoculation against influenza (Renamed from Need for immunization against influenza) Start:17-Oct-2021 Instruction Type:Patient Education [facility] Work Phone: Instructions Note Date & Type Note Facility Instructions Name Patient Instructions Indication:Need for prophylactic vaccination and inoculation against influenza (Renamed from Need for immunization against influenza) Start:17-Oct-2021 Instruction Type:Provider Instructions for Treatment How to Access Health Information Online using Patient Portal and [employer] Apps Indication:Need for prophylactic vaccination and inoculation against influenza (Renamed from Need for immunization against influenza) Start:17-Oct-2021 Instruction Type:Patient Education [facility] Work Phone: Instructions Note Date & Type Note Facility Instructions Name Patient Instructions Indication:Tobacco abuse Start: 3 Instruction Type:Provider Instructions for Treatment How to Access Health Information Online using Patient Portal and [employer] Apps Indication:Tobacco abuse Start: 3 Instruction Type:Patient Education Patient Instructions Indication:Tobacco abuse Start: 2 Instruction Type:Provider Instructions for Treatment How to Access Health Information Online using Patient Portal and [employer] Apps Indication:Tobacco abuse Start: 2 Instruction Type:Patient Education Patient Instructions Indication:Need for prophylactic vaccination and inoculation against influenza (Renamed from Need for immunization against influenza) Start:17-Oct-2021 Instruction Type:Provider Instructions for Treatment How to Access Health Information Online using Patient Portal and [employer] Apps Indication:Need for prophylactic vaccination and inoculation against influenza (Renamed from Need for immunization against influenza) Start:17-Oct-2021 Instruction Type:Patient Education [facility] Work Phone: Instructions Note Date & Type Note Facility Instructions Name Patient Instructions Indication:Tobacco abuse Start: 3 Instruction Type:Provider Instructions for Treatment How to Access Health Information Online using Patient [employer] and [employer] Indication:Tobacco abuse Start: 3 Instruction Type:Patient Education Patient Instructions Indication:Tobacco abuse Start: 2 Instruction Type:Provider Instructions for Treatment How to Access Health Information Online using Patient [employer] and [employer] Indication:Tobacco abuse Start: 2 Instruction Type:Patient Education Patient Instructions Indication:Need for prophylactic vaccination and inoculation against influenza (Renamed from Need for immunization against influenza) Start:17-Oct-2021 Instruction Type:Provider Instructions for Treatment How to Access Health Information Online using Patient [employer] and [employer] Indication:Need for prophylactic vaccination and inoculation against influenza (Renamed from Need for immunization against influenza) Start:17-Oct-2021 Instruction Type:Patient Education [facility] Work Phone: Instructions Note Date & Type Note Facility Instructions Name Patient Instructions Indication:Tobacco abuse Start: 3 Instruction Type:Provider Instructions for Treatment How to Access Health Information Online using Patient [employer] and [employer] Indication:Tobacco abuse Start: 3 Instruction Type:Patient Education Patient Instructions Indication:Tobacco abuse Start: 3 Instruction Type:Provider Instructions for Treatment How to Access Health Information Online using Patient [employer] and [employer] Indication:Tobacco abuse Start: 3 Instruction Type:Patient Education Patient Instructions Indication:Tobacco abuse Start: 2 Instruction Type:Provider Instructions for Treatment How to Access Health Information Online using Patient [employer] and [employer] Indication:Tobacco abuse Start: 2 Instruction Type:Patient Education Patient Instructions Indication:Need for prophylactic vaccination and inoculation against influenza (Renamed from Need for immunization against influenza) Start:17-Oct-2021 Instruction Type:Provider Instructions for Treatment How to Access Health Information Online using Patient Portal and [employer] Apps Indication:Need for prophylactic vaccination and inoculation against influenza (Renamed from Need for immunization against influenza) Start:17-Oct-2021 Instruction Type:Patient Education [facility] Work Phone: Chief Complaint Chief Complaint Description Start Date right elbow pain Preliminary chief co mplaint data, not yet signed by the author as of Advance Directives There may be information available, but it has not been provided by the sender. No Advanced Directives Records FoundNo Advanced Directives Records Found No Information Available No Advanced Directives Records Found Assessments There may be information available, but it has not been provided by the sender. Review of System There may be information available, but it has not been provided by the sender. Family History No Family History Records FoundUnknown Family Member Name Dates Details Family Members In General Comments:Brother-AlcoholismS ister-Alcoholism, anxiety/depression, thyroid Status:Active Father Comments:Alcoholism, Heart d isease Status:Active Unknown Family Member Name Dates Details Family Members In General Comments:Brother-AlcoholismS ister-Alcoholism, anxiety/depression, thyroid Status:Active Father Comments:Alcoholism, Heart d isease Status:Active Unknown Family Member Name Dates Details Family Members In General Comments:Brother-AlcoholismS ister-Alcoholism, anxiety/depression, thyroid Status:Active Father Comments:Alcoholism, Heart d isease Status:Active Unknown Family Member Name Dates Details Family Members In General Comments:Brother-AlcoholismS ister-Alcoholism, anxiety/depression, thyroid Status:Active Father Comments:Alcoholism, Heart d isease Status:Active Unknown Family Member Name Dates Details Family Members In General Comments:Brother-AlcoholismS ister-Alcoholism, anxiety/depression, thyroid Status:Active Father Comments:Alcoholism, Heart d isease Status:Active Unknown Family Member Name Dates Details Family Members In General Comments:Brother-AlcoholismS ister-Alcoholism, anxiety/depression, thyroid Status:Active Father Comments:Alcoholism, Heart d isease Status:Active Family Member Condition Mother Alive Mother Father Father Heart disease Mother Heart disease History of Present Illness There may be information available, but it has not been provided by the sender. Summary Purpose Chief Complaint and Reason for Visit Chief Complaint Blood Flow Screening - [facility] [employer] Additional Source Comments Reason for Visit (unrecogniz ed section and content) Reason For Visit Description Follow-up by complaint Preliminary reason f or visit data, not yet signed by the author as of right elbow pain INFORMATION SOURCE (unrecogn ized section and content) DATE CREATED AUTHOR 11/19/2018 [facility] ([place]) DATE CREATED AUTHOR AUTHOR'S ORGANIZ ATION 01/25/2023 [facility] DATE CREATED AUTHOR AUTHOR'S ORGANIZ ATION 08/18/2025 [facility] Care Teams (unrecognized sec tion and content) Team Status: Active Member Role Status Dates Dr. Emmy Haddad DO Primary Care Provider Active Team Status: Active Member Role Status Dates Dr. Emmy Haddad DO Primary Care Provider Active Dr. Julian Arellano MD Attending Provider Active Team Status: Inactive Member Role Status Dates Dr. Emmy Haddad , DO Primary Care Provider Active Self Referred Attending Provider Active Goals (unrecognized section and content) Goals may be documented in a n alternate section No Information Available FOR RECORDS PERTAINING TO PATIENTS WHO ARE OR HAVE BEEN ENROLLED IN A CHEMICAL DEPENDENCY/SUBSTANCEABUSE PROGRAM, SOME INFORMATION MAY BE OMITTED. This clinical summary was aggregated from multiple sources. Caution should be exercised in using it in the provision of clinical care. This summary normalizes information from multiple sources, and as a consequence, information in this document may materially change the coding, format and clinical context of patient data. In addition, data may be omitted in some cases. CLINICAL DECISIONS SHOULD BE BASED ON THE PRIMARY CLINICAL RECORDS. [employer] provides no warranty or guarantee of the accuracy or completeness of information in this document.
--- NOTE | 2025-08-25 13:25 | CT_ITS ---
PROCEDURE: LOW DOSE CT LUNG SCREENING 08/25/2025 REASON FOR EXAM: TOBACCO ABUSE TECHNIQUE: Procedure Code: [id number] Modality: CT Procedure: LOW DOSE CT LUNG SCREENING Coronal and Sagittal reconstruction series were provided. One or more dose reduction techniques were used (e.g., Automated exposure control, adjustment of the mA and/or kV according to patient size, use of iterative reconstruction technique). REFERENCE LINK: [facility] Lung-RADS RADIATION DOSE SUMMARY: CTDlvol: 2.38 mGy DLP: 83.65 mGycm COMPARISON: Low-dose lung screen, 02/20/2023 FINDINGS: PULMONARY NODULES: (Only nodules >3mm are reported) Lower neck:The thyroid gland is unremarkable. There is no supraclavicular lymphadenopathy. Mediastinum:There are few, not pathologically enlarged, mediastinal lymph nodes. Heart and Vasculature:The heart size is normal. There is no pericardial effusion. There is significant calcific vascular disease of the coronary arteries and thoracic aorta. Esophagus:Unremarkable. Upper Abdomen:There is significant calcific vascular disease of the visualized abdominal aorta. Chest wall:The visualized soft tissues of the chest wall appear unremarkable. There is no axillary lymphadenopathy. There is [id number] multilevel degenerative disc disease of the thoracic spine. There is moderate dextroscoliosis of the thoracic spine. Lungs, airways and pleura: There is stable pleural-parenchymal scarring in both lung apices. There is mild upper lobe predominant centrilobular emphysema. There are 2 small stable pneumatoceles in the lower lobe of the left lung. CT/Low Dose CT Lung Screening IMPRESSION: 1. Emphysema. 2. There are no pulmonary nodules. 3. There is calcific vascular disease of the coronary arteries. 4. Other findings as noted. No significant change. Lung-RADS Category: 1 S: Negative. Emphysema. Calcific vascular disease. Recommendation: Follow up low-dose chest CT in 12 months. Reading Location: [place] [id number]
--- NOTE | 2025-08-25 13:45 | BD_ITS ---
PROCEDURE: DEXA BONE DENSITY STUDY 08/25/2025 REASON FOR EXAM: F, age 69 y/o . Postmenopausal. TECHNIQUE: Procedure Code: BDDBD Modality: DX Procedure: DEXA BONE DENSITY STUDY COMPARISON: November 21, 2021. FINDINGS: BMD and T-SCORES Lumbar spine: 0.700 g/cm2, T-score -3.2 Levels: L1 through L4 Change from prior: Loss of 7.1%. Left femoral neck: 0.5 4th g/cm2, T-score -2.8 Femoral neck comparison data not recommended for monitoring change. Left total hip: 0.630 g/cm2, T-score -2.6 Change from prior: Loss of 5.9%. Right femoral neck: 0.585 g/cm2, T-score -2.4 Femoral neck comparison data not recommended for monitoring change. Right total hip: 0.681 g/cm2, T-score -2.1 Change from prior: Loss of 5.1%. The World Health Organization has defined the following categories based on bone density: Normal bone density: T-score equal to or greater than -1.0 Osteopenia: T-score between -1.0 and -2.5 Osteoporosis: T-score equal to or less than -2.5 FRAX (or Comparable) Fracture Risk Assessment: 10 Year Probability of Fracture: Major Osteoporotic Fracture: 17% Hip Fracture: 7.4% (Note: FRAX is not to be reported in setting of normal range bone density, osteoporosis on DEXA, known history of osteoporosis, prior osteoporotic hip or vertebral fracture, or for any patient undergoing pharmacological treatment for bone loss.) The National Osteoporosis Foundation (NOF) recommends pharmacological treatment for patients with a FRAX 10-year risk of 3% or higher for a hip fracture, or 20% or higher for a major osteoporotic fracture, to prevent osteoporosis and reduce fracture risk. The patient does meet the pharmacological treatment recommendations for prevention of osteoporosis. BD/Dexa Bone Density Study IMPRESSION: OSTEOPOROSIS. Recommend follow-up as clinically warranted. Reading Location: [place] [id number]
--- NOTE | 2025-08-25 14:30 | BI_ITS ---
EXAM: SCRN MAMM (CAD)W/TIGIST BILAT DATE: 08/25/2025 CLINICAL HISTORY: F, Age 69 y/o , SCREENING No family history. TECHNIQUE: Procedure Code: [id number] Modality: MG Procedure: SCRN MAMM (CAD)W/TIGIST BILAT COMPARISON: Prior exam(s) dated November 21, 2021.. FINDINGS: TISSUE DENSITY: The breasts are heterogeneously dense, which may obscure small masses. Bilateral Breast Mammographic Findings: No significant masses, calcifications or other abnormalities are identified. No suspicious masses, areas of developing architectural distortion, or suspicious calcifications. There has been no significant interval change. BI/SCRN MAMM (CAD)W/TIGIST BILAT IMPRESSION: Stable bilateral screening mammogram. OVERALL FINAL ASSESSMENT BI-RADS 1: NEGATIVE. RECOMMENDATION: Routine annual follow-up in 1 Year Additional Recommendation none A letter with findings and recommendations will be mailed to the patient. Reading Location: [place] [address]
== END | disposition home or self-care (01) ==
LOC: PSN 12:21
PROVIDERS: PCP Internal Medicine; Referring Provider Internal Medicine; Visit Provider Internal Medicine
DX: Z12.31 Encounter for screening mammogram for malignant neoplasm of breast (principal); Z78.0 Asymptomatic menopausal state; Z12.2 Encounter for screening for malignant neoplasm of respiratory organs; F17.210 Nicotine dependence, cigarettes, uncomplicated; R09.89 Other specified symptoms and signs involving the circulatory and respiratory systems
CPT/HCPCS: 71271; 77063; 77067; 77080; 94060; 94726; 94729

== ENCOUNTER → 2025-09-20 | Outpatient (CLI) | payer MEDICARE, SELFPAY ==
[2025-09-20 14:58] LABS: Hematocrit 43.0 % (37-47); Hemoglobin 14.2 g/dL (12.0-15.0); Immature Granulocytes Count 0.020 X10^3/uL (0.0-0.0); Mean Corp Hgb Conc 33.0 g/dL (32-36); Mean Corpuscular Volume 97.9 fL (81-99); Mean Platelet Vol. 10.1 fl (6.2-12.0); NRBC Flagged by Analyzer 0 % (0-5); Platelet Count 286 K/mm3 (150-450); RBC Distribution Width CV 13.7 % (11.6-14.6); RBC Distribution Width SD 49.9 fl (35.1-43.9); Red Blood Count 4.39 M/mm3 (4.2-5.4); White Blood Count 7.6 K/mm3 (4.4-11.0)
[2025-09-20 15:41] LABS: AST(SGOT) 27 U/L (<=31); Alanine Aminotransfer ALT/SGPT 18 U/L (<=34); Albumin, Serum 4.5 g/dL (3.4-4.8); Alkaline Phosphatase 57 U/L (35-104); Anion Gap 11 (5-15); BUN 14 mg/dL (4-19); BUN/Creat Ratio 17.2 RATIO (10-20); Calcium,Total 10.0 mg/dL (7.6-11.0); Carbon Dioxide 24.9 mmol/L (21.0-32.0); Chloride 102 mmol/L (98-108); Cholesterol 223 mg/dL (<=200); Globulin 2.9 g/dL (2.2-4.2); Glucose 120 mg/dL (70-99); Low Density Lipoprotein Calc. 130 mg/dL; Potassium 4.3 mmol/L (3.3-5.1); Triglycerides 93 mg/dL; Very Low Density Lipoprotein 19 mg/dL (5-40); cholesterol:hdl ratio screen 2.90
== END | disposition home or self-care (01) ==
PROVIDERS: PCP Internal Medicine; Referring Provider Internal Medicine; Visit Provider Nurse Practitioner Family
DX: E07.9 Disorder of thyroid, unspecified (principal); E21.5 Disorder of parathyroid gland, unspecified; I10 Essential (primary) hypertension
CPT/HCPCS: 36415; 80053; 80061; 84443; 85025

== ENCOUNTER → 2025-11-08 | Outpatient (CLI) | payer MEDICARE, SELFPAY | END | disposition home or self-care (01) | LOC: CIMLAB 13:18 | PROVIDERS: PCP Internal Medicine; Referring Provider Nurse Practitioner Family; Visit Provider Nurse Practitioner Family | DX: R73.09 Other abnormal glucose (principal) | CPT/HCPCS: 36415; 83036 ==